=== PATIENT | female | born 1975 | race Caucasian/White ===

== ENCOUNTER 2017-01-19 18:23 | Emergency (ER) | payer OTHER ==
[~2017-01-19] VITALS: Ht 162.6 cm; Wt 99.0 kg
[~2017-01-19 18:23] MED LIST: ACET-1145 PO; LOPE2CAP PO; ONDA4TAB35 PO
[2017-01-19 18:35] VITALS: Ht 162.6 cm; Wt 99.0 kg
[2017-01-19] MEDS ORDERED: KETOROLAC 30 MG INJ IM STA (19:27)
[2017-01-19] MEDS ORDERED: ONDANSETRON (ODT) 4 MG TAB ODT STA (19:27)
--- NOTE | 2017-01-19 20:01 | RADRPT ---
PROCEDURE: CT Head without. CLINICAL INDICATION: Headache. TECHNIQUE: The study was performed utilizing a multi-slice, multidetector CT scanner. Direct spira l 1 mm axial sections were obtained through the head without the use of intravenous contrast materia l. 1 or more of the following dose reduction techniques were utilized: Automated exposure control, adjustment of the mA and/or kV according to patient's size, iterative reconstruction technique. Co chantel and sagittal reformations were obtained. The images were reviewed on a PACS workstation. RADIATION DOSE: CTDIvol: 45.0 mGyDLP: 720.2 mGy-cm COMPARISON: No prior studies are available for comparison. FINDINGS: There is no intracranial hemorrhage, extra-axial fluid collection, mass lesion, midline shift or hyd rocephalus. The ventricles, sulci and cisterns are within normal limits. The white matter is unrem arkable. The gaines-white matter differentiation is preserved. The basal cisterns are patent. The m idline structures are intact. The orbits, calvarium and extracranial soft tissues are normal in jany earance. The visualized paranasal sinuses, mastoid air cells and middle ear cavities are normally ae rated. IMPRESSION: 1. No acute intracranial abnormality. No intracranial hemorrhage, extra-axial fluid collection, ma ss lesion or hydrocephalous. RPTAT: HGAS .You Massey MD, MD Date Time Electronically viewed and signed by .You Massey MD, on 01/19/2017 20:00 .S/
[2017-01-19] MEDS ORDERED: IBUP-1542 PO (20:06)
[2017-01-19] MEDS ORDERED: ACET325T33 PO (20:08)
--- NOTE | 2017-01-20 03:08 | ERA ---
ER Documentation Chief Complaint Date/Time DATE: 01/20/17 TIME: 03:05 Chief Complaint migraine headache x 3 days HPI Patient is a 41-year-old female complaining of chronic migraines. Patient has a history of migraines with aura. Patient has been using Excedrin without relief. Patient has an appointment with a neurologist later this month but headache has been more frequent lately and wanted to be evaluated. Patient denies any vomiting or loss of vision, or worse headache of her life. ROS All systems reviewed and are negative except as per history of present illness. Medications Home Meds Active Scripts Acetaminophen* (Tylenol*) 325 Mg Tablet, 1 TAB PO Q8 Y for PAIN AND OR ELEVATED TEMP, #20 TAB Prov:INDRA RIBEIRO PA-C 01/19/17 Acetaminophen-Codeine (Tylenol With Codeine #3 Tablet) 300-30 Mg Tablet, 1 TAB PO Q4H Y for PAIN, #10 TAB Prov:RAUDEL MALONE DO 03/31/16 Ondansetron Hcl* (Zofran* ODT) 4 mg -ODT Tab.disper, 4 MG PO Q4H Y for NAUSEA AND OR VOMITING, #10 TAB Prov:RAUDEL MALONE DO 03/31/16 Loperamide Hcl* (Imodium*) 2 Mg Capsule, 2 MG PO Q6H Y for DIARRHEA, #14 CAP MAX 16 mg/day Prov:RAUDEL MALONE DO 03/31/16 Reported Medications [Unk] No Conflict Check 05/05/11 Discontinued Scripts Ibuprofen* (Motrin*) 600 Mg Tab, 600 MG PO Q6H Y for PAIN AND OR ELEVATED TEMP, #30 TAB Prov:INDRA RIBEIRO PA-C 01/19/17 Allergies Allergies: Coded Allergies: No Known Drug Allergy (Verified Allergy, Unknown, 03/31/16) PMhx/Soc Medical and Surgical Hx: pt denies Medical Hx History of Surgery: Yes ([facility] 2012) Anesthesia Reaction: No Hx Neurological Disorder: No Hx Respiratory Disorders: No Hx Cardiac Disorders: No Hx Miscellaneous Medical Probl: Yes (HAS IUD (PARAGAURD?) SINCE 2008) Hx Alcohol Use: Yes Hx Substance Use: No Hx Tobacco Use: No Smoking Status: Never smoker Physical Exam Vitals Vital Signs Date Time Temp Pulse Resp B/P Pulse Ox O2 Delivery O2 Flow Rate FiO2 01/19/17 18:35 99.3 76 20 176/81 100 Physical Exam Const: [] Head: Atraumatic Eyes: Normal Conjunctiva ENT: Normal External Ears, Nose and Mouth. Neck: Full range of motion..~ No meningismus. Resp: Clear to auscultation bilaterally Cardio: Regular rate and rhythm, no murmurs Abd: Soft, non tender, non distended. Normal bowel sounds Skin: No petechiae or rashes Back: No midline or flank tenderness Ext: No cyanosis, or edema Neur: Awake and alert Psych: Normal Mood and Affect Results 24 hrs Current Medications Medications (Trade) Dose Ordered Sig/Rebeca Route PRN Reason Start Time Stop Time Status Last Admin Dose Admin Ketorolac Tromethamine (Toradol) 30 mg ONCE STAT IM 01/19/17 19:27 01/19/17 19:28 DC 01/19/17 20:06 Ondansetron HCl (Zofran Odt) 4 mg ONCE STAT ODT 01/19/17 19:27 01/19/17 19:28 DC 01/19/17 20:04 Procedures/MDM Patient is a 41-year-old female who complains of chronic migraines with aura. Patient denies worse headache of life. Patient has vomitus we will go ahead and get a CT since she has not had one done before. CT was normal. Went ahead and give the patient Toradol and Zofran. Patient had some resolution of symptoms. We will go ahead and discharge the patient with Percocets and return precautions. Have advised the patient to follow-up with neurologist as soon as possible. I spoke with Dr. Somers and he agrees with my assessment. Departure Diagnosis: Primary Impression: Classic migraine with aura Qualified Code: G43.109 - Migraine with aura and without status migrainosus, not intractable Condition: Stable Patient Instructions: Headache, Migraine (Classical) Additional Instructions: Tylenol for discomfort as follow-up with neurologist for further evaluation. INDRA RIBEIRO PA-C Jan 20, 2017 03:08
== END 2017-01-19 20:24 | disposition home or self-care (01) ==
LOC: FTE 18:23
DX: G43.109 Migraine with aura, not intractable, without status migrainosus (principal)
CPT/HCPCS: 70450; J1885; Z7610; 96372

== ENCOUNTER 2017-04-07 10:32 | Emergency (ER) | payer OTHER ==
[~2017-04-07] VITALS: Ht 170.2 cm; Wt 100.0 kg
[~2017-04-07 10:32] MED LIST changes: +ACET325T33 PO
[2017-04-07 10:40] VITALS: Ht 170.2 cm; Wt 100.0 kg
[2017-04-07] MEDS ORDERED: KETOROLAC 30 MG INJ IV STA (11:29)
[2017-04-07 12:06] LABS: ADD SCAN DIFF NO
[2017-04-07 12:11] LABS: BASOPHIL # 0.1 10^3/ul (0.0-0.1); BASOPHILS % 0.6 % (0.0-2.0); HEMATOCRIT 35.7 % (37.0-47.0); HEMOGLOBIN 12.6 g/dl (12.0-16.0); LYMPHOCYTES # 2.2 10^3/ul (0.8-2.9); MEAN CORPUSCULAR HGB CONC 35.3 g/dl (32.0-37.0); MEAN CORPUSCULAR VOLUME 90.6 fl (82.0-101.0); MEAN PLATELET VOLUME 10.4 fl (7.4-10.4); MONOCYTE # 0.5 10^3/ul (0.3-0.9); MONOCYTES % 6.4 % (0.0-11.0); NEUTROPHIL # 5.1 10^3/ul (1.6-7.5); NEUTROPHILS % 64.7 % (39.0-77.0); PLATELET COUNT 296 10^3/UL (140-415); RED BLOOD COUNT 3.94 10^6/ul (4.20-5.40); RED CELL DISTRIBUTION WIDTH 12.2 % (11.5-14.5); WHITE BLOOD COUNT 7.9 10^3/ul (4.8-10.8)
--- NOTE | 2017-04-07 12:18 | RADRPT ---
PROCEDURE: US Pelvis CLINICAL INDICATION: Vaginal bleeding TECHNIQUE: Sonographic evaluation of the pelvis was performed utilizing both transabdominal and tr ansvaginal technique. Curved array transabdominal transducer technique as well as a high frequency endovaginal probe was utilized. Images were reviewed on the high-resolution PACS workstation. COMPARISON: No prior studies are available for comparison. FINDINGS: The uterus is normal in size, echogenicity, and morphology measuring 9.2 x 4.3 x 5.5 cm in dimension . The uterus is anteverted in normal position. The endometrium is thin and homogeneous measuring 4.4 mm in diameter. The normal trilaminar stripe of the endometrium is preserved. There is a Naboth regan cyst within the cervix. The right ovary measures 2.4 x 1.9 x 1.9 cm in dimension. The left ovary is not visualized. The ri ght ovary is normal in size, echogenicity, and morphology. Normal Doppler flow is demonstrated. Th ere are no adnexal masses. There is no significant free fluid in the pelvis. IMPRESSION: 1. Unremarkable appearance of the uterus and right ovary. 2. The left ovary is not visualized. RPTAT: HH .Deisy Hunt MD, Date Time Electronically viewed and signed by .Deisy Hunt MD, on 04/07/2017 12:18 .G/
[2017-04-07 12:29] LABS: ALBUMIN 4.9 g/dl (3.3-4.9); ALBUMIN/GLOBULIN RATIO 1.63; BILIRUBIN,INDIRECT 0.2 mg/dl (0-1.1); BILIRUBIN,TOTAL 0.2 mg/dl (0.2-1.3); CALCIUM 9.1 mg/dl (8.4-10.2); CREATININE 0.53 mg/dl (0.44-1.00); POTASSIUM 3.5 mmol/L (3.5-5.1); TOTAL PROTEIN 7.9 g/dl (6.1-8.1)
[2017-04-07 15:30] LABS: ADD UMIC YES; UR ASCORBIC ACID NEGATIVE (NEGATIVE); UR BILIRUBIN (Dip) NEGATIVE (NEGATIVE); UR BLOOD (Dip) 3+ mg/dL (NEGATIVE); UR CLARITY CLEAR (CLEAR); UR COLOR YELLOW (YELLOW); UR GLUCOSE (Dip) NEGATIVE (NEGATIVE); UR KETONES (Dip) NEGATIVE (NEGATIVE); UR LEUKOCYTE ESTERASE (Dip) TRACE Leu/ul (NEGATIVE); UR NITRITE (Dip) NEGATIVE (NEGATIVE); UR RBC 6 /HPF (0-5); UR SPECIFIC GRAVITY (Dip) 1.008 (1.003-1.030); UR SQUAMOUS EPITHELIAL CELL FEW /HPF (FEW); UR TOTAL PROTEIN (Dip) NEGATIVE (NEGATIVE); UR UROBILINOGEN (Dip) NEGATIVE (NEGATIVE)
[2017-04-07] MEDS ORDERED: IBUP-1542 PO (15:58)
[2017-04-07 16:10] VITALS: PULSE 79; RESP 18; TEMP 98.5
--- NOTE | 2017-04-07 16:41 | ERD ---
ER Documentation Chief Complaint Date/Time DATE: 04/07/17 TIME: 16:25 Chief Complaint Complains of abdominal pain Hx of Ovarian cyst HPI 41-year-old female complaining of pelvic pain 2 weeks, worse in the last 2 days. Patient reports heavy vaginal bleeding in the last 2 weeks. The bleeding has eased up for the last 2 days, she only need to change her pads once today. Patient is on OCP, her previous masses was 1.5 weeks earlier. Patient reports history of right ovarian cysts about 8 years ago. She took ibuprofen and Tylenol for pain, but had not helped. Patient reports feeling lightheaded and dizzy. Denies fever or chills. Denies vomiting, diarrhea or constipation. Denies dysuria. Surgical history of cholecystectomy and tummy tuck. Denies any medical history. ROS All systems reviewed and are negative except as per history of present illness. Medications Home Meds Active Scripts Ibuprofen* (Motrin*) 600 Mg Tab, 600 MG PO Q6H Y for PAIN AND OR ELEVATED TEMP, #30 TAB Prov:KELLY CHANG WAITER [employer]IER 04/07/17 Acetaminophen* (Tylenol*) 325 Mg Tablet, 1 TAB PO Q8 Y for PAIN AND OR ELEVATED TEMP, #20 TAB Prov:INDRA RIBEIRO PA-C 01/19/17 Acetaminophen-Codeine (Tylenol With Codeine #3 Tablet) 300-30 Mg Tablet, 1 TAB PO Q4H Y for PAIN, #10 TAB Prov:RAUDEL MALONE DO 03/31/16 Ondansetron Hcl* (Zofran* ODT) 4 mg -ODT Tab.disper, 4 MG PO Q4H Y for NAUSEA AND OR VOMITING, #10 TAB Prov:RAUDEL MALONE DO 03/31/16 Loperamide Hcl* (Imodium*) 2 Mg Capsule, 2 MG PO Q6H Y for DIARRHEA, #14 CAP MAX 16 mg/day Prov:RAUDEL MALONE DO 03/31/16 Reported Medications [Unk] No Conflict Check 05/05/11 Allergies Allergies: Coded Allergies: No Known Drug Allergy (Verified Allergy, Unknown, 03/31/16) PMhx/Soc History of Surgery: Yes ([facility] 2012) Anesthesia Reaction: No Hx Neurological Disorder: No Hx Respiratory Disorders: No Hx Cardiac Disorders: No Hx Miscellaneous Medical Probl: Yes (taking birthcontrol ) Hx Alcohol Use: No (occassional) Hx Substance Use: No Hx Tobacco Use: No Physical Exam Vitals Vital Signs Date Time Temp Pulse Resp B/P Pulse Ox O2 Delivery O2 Flow Rate FiO2 04/07/17 16:10 98.5 79 18 98 Room Air 04/07/17 10:40 98.7 86 20 120/61 100 Physical Exam General: Well-developed, well-nourished, conscious and coherent, in no distress Skin: Warm and dry without rash, good texture and turgor Head: Normocephalic without evidence of trauma Eyes: Sclera and conjunctivae normal; pupils equal, round, and reactive to light; extraocular movements are intact Neck: Supple without meningismus or adenopathy. Carotids are equal. Trachea midline. No bruits or JVD Chest: Normal AP diameter. Good expansion without retractions. Nontender. Lungs are clear to auscultate bilaterally with good tidal volume Heart: Regular rate and rhythm. No murmur, rub, or gallops heard Abdomen: Soft, right lower quadrant tenderness without masses, guarding, or rebound. Bowel sounds are active. No hepatosplenomegaly Back: Without spinal or CVA tenderness Extremities: Full range of motion. Good strength bilaterally. No clubbing, cyanosis, or edema. Peripheral pulses are intact. Sensation intact Neuro: Alert and oriented 4, GCS 15. Cranial nerves grossly intact. Motor and sensory exams nonfocal. Moves all extremities. Speech clear. Gait normal Result Diagram: 04/07/17 1140 04/07/17 1140 Results 24 hrs Laboratory Tests Test 04/07/17 11:40 04/07/17 14:38 White Blood Count 7.910^3/ul Red Blood Count 3.9410^6/ul Hemoglobin 12.6g/dl Hematocrit 35.7% Mean Corpuscular Volume 90.6fl Mean Corpuscular Hemoglobin 32.0pg Mean Corpuscular Hemoglobin Concent 35.3g/dl Red Cell Distribution Width 12.2% Platelet Count 03694^3/UL Mean Platelet Volume 10.4fl Neutrophils % 64.7% Lymphocytes % 28.0% Monocytes % 6.4% Eosinophils % 0.0% Basophils % 0.6% Nucleated Red Blood Cells % 0.0/100WBC Neutrophils # 5.110^3/ul Lymphocytes # 2.210^3/ul Monocytes # 0.510^3/ul Eosinophils # 0.010^3/ul Basophils # 0.110^3/ul Nucleated Red Blood Cells # 0.010^3/ul Sodium Level 140mmol/L Potassium Level 3.5mmol/L Chloride Level 101mmol/L Carbon Dioxide Level 30mmol/L Anion Gap 13 Blood Urea Nitrogen 8mg/dl Creatinine 0.53mg/dl Glucose Level 89mg/dl Calcium Level 9.1mg/dl Total Bilirubin 0.2mg/dl Direct Bilirubin 0.00mg/dl Indirect Bilirubin 0.2mg/dl Aspartate Amino Transf (AST/SGOT) 19IU/L Alanine Aminotransferase (ALT/SGPT) 33IU/L Alkaline Phosphatase 53IU/L Total Protein 7.9g/dl Albumin 4.9g/dl Globulin 3.00g/dl Albumin/Globulin Ratio 1.63 Lipase 104U/L Urine Color YELLOW Urine Clarity CLEAR Urine pH 7.0 Urine Specific [place] 1.008 Urine Ketones NEGATIVEmg/dL Urine Nitrite NEGATIVEmg/dL Urine Bilirubin NEGATIVEmg/dL Urine Urobilinogen NEGATIVEmg/dL Urine Leukocyte Esterase TRACELeu/ul Urine Microscopic RBC 6/HPF Urine Microscopic WBC 1/HPF Urine Squamous Epithelial Cells FEW/HPF Urine Hemoglobin 3+mg/dL Urine Glucose NEGATIVEmg/dL Urine Total Protein NEGATIVEmg/dl Current Medications Medications (Trade) Dose Ordered Sig/Rebeca Route PRN Reason Start Time Stop Time Status Last Admin Dose Admin Ketorolac Tromethamine (Toradol) 30 mg ONCE STAT IV 04/07/17 11:29 04/07/17 11:31 DC 04/07/17 11:54 PROCEDURE: US Pelvis CLINICAL INDICATION: Vaginal bleeding TECHNIQUE: Sonographic evaluation of the pelvis was performed utilizing both transabdominal and transvaginal technique. Curved array transabdominal transducer technique as well as a high frequency endovaginal probe was utilized. Images were reviewed on the high-resolution PACS workstation. COMPARISON: No prior studies are available for comparison. FINDINGS: The uterus is normal in size, echogenicity, and morphology measuring 9.2 x 4.3 x 5.5 cm in dimension. The uterus is anteverted in normal position. The endometrium is thin and homogeneous measuring 4.4 mm in diameter. The normal trilaminar stripe of the endometrium is preserved. There is a Nabothian cyst within the cervix. The right ovary measures 2.4 x 1.9 x 1.9 cm in dimension. The left ovary is not visualized. The right ovary is normal in size, echogenicity, and morphology. Normal Doppler flow is demonstrated. There are no adnexal masses. There is no significant free fluid in the pelvis. IMPRESSION: 1. Unremarkable appearance of the uterus and right ovary. 2. The left ovary is not visualized. RPTAT: HH .Deisy Hunt MD, MD Date Time Electronically viewed and signed by .Deisy Hunt MD, MD on 04/07/2017 12 :18 .G/ CC: KELLY CHANG. [employer] Procedures/MDM Well-appearing 41-year-old female presented ED with right pelvic pain and heavy vaginal bleeding. No anemia or leukocytosis noted on CBC. CMP and lipase are negative. UA is noted for 3+ blood, otherwise unremarkable. Hematuria is likely due to vaginal bleeding. Urine test is negative. Pelvic ultrasound unremarkable. I have low suspicion for ectopic , ovarian torsion, ruptured ovarian cyst, acute appendicitis, or bowel obstruction. It is uncertain the cause of patient pelvic pain at this time. Toradol given to the patient in the ED for pain relief. Patient appears well, stable for discharge and outpatient management. Medical decision making shared with patient and family. Education provided to patient and family. Patient and family expressed understanding of the plan. 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 Medications on discharge: Ibuprofen. Follow-up: Primary care provider in 2-3 days or return to ED if worse. Departure Diagnosis: Primary Impression: Pelvic pain Condition: Stable Patient Instructions: Pelvic Pain, Unknown Cause Additional Instructions: Call your primary care doctor TOMORROW for an appointment during the next 2-3 days.See the doctor sooner or return here if your condition worsens before your appointment time. KELLY CHANG NP Apr 07, 2017 16:35
== END 2017-04-07 16:12 | disposition home or self-care (01) ==
LOC: FTE 10:32
DX: R10.2 Pelvic and perineal pain (principal); R40.2412 Glasgow coma scale score 13-15, at arrival to emergency department
CPT/HCPCS: 76830; 76856; 80053; 81001; 83690; 85025; J1885; 36415; 96374

== ENCOUNTER 2018-09-25 10:10 | Emergency (ER) | END 2018-09-25 15:41 | disposition home or self-care (01) ==